=== PATIENT | male | born 1960 | race Caucasian/White ===

== ENCOUNTER 2018-09-22 08:53 | Emergency (ER) | payer BC ==
[~2018-09-22] VITALS: Ht 185.4 cm; Wt 145.0 kg
[2018-09-22] MEDS ORDERED: diltiazem 5mg/ml 5ml inj. IV ONE (09:20)
[2018-09-22] MEDS ORDERED: aspirin 81mg tab.chew PO ONE (09:20)
[2018-09-22 09:28] LABS: BASOPHILS % (AUTO) 0.6 % (0-1); EOSINOPHILS # (AUTO) 0.1 X10'3 (0-0.9); EOSINOPHILS % (AUTO) 1.4 % (0-6); HEMATOCRIT 52.2 % (42.0-52.0); LYMPHOCYTES # (AUTO) 1.3 X10'3 (1.1-4.8); LYMPHOCYTES % (AUTO) 18.3 % (21-51); MEAN CORPUSCULAR HEMOGLOBIN 30.9 PG (27.0-31.0); MEAN CORPUSCULAR HGB CONC 34.6 g/dL (33.0-36.5); MEAN CORPUSCULAR VOLUME 89.4 FL (78-98); MEAN PLATELET VOLUME 8.7 FL (7.4-10.4); MONOCYTES # (AUTO) 0.5 X10'3 (0-0.9); MONOCYTES % (AUTO) 6.8 % (2-12); NEUTROPHILS # (AUTO) 5.2 X10'3 (1.8-7.7); NEUTROPHILS % (AUTO) 72.9 % (42-75); PLATELET COUNT 238 X10'3 (140-440); RED BLOOD COUNT 5.84 X10'6 (4.70-6.10); RED CELL DISTRIBUTION WIDTH 13.6 % (11.5-14.5); WHITE BLOOD COUNT 7.1 X10'3 (4.5-11.0)
[2018-09-22 09:36] LABS: HEMOGLOBIN 18.1 g/dl (14.0-17.9)
[2018-09-22 09:43] LABS: ALANINE AMINOTRANSFERASE 24 U/L (12-78); ALBUMIN 3.5 G/DL (3.4-5.0); ALKALINE PHOSPHATASE 65 IU/L (46-116); ANION GAP 9 (8-16); ASPARTATE AMINO TRANSFERASE 14 U/L (10-37); BILIRUBIN,TOTAL 0.4 MG/DL (0.1-1.0); BLOOD UREA NITROGEN 22 MG/DL (7-18); BUN/CREATININE RATIO 19.5 (5.4-32.0); CALCIUM 9.5 MG/DL (8.5-10.1); CHLORIDE 104 MMOL/L (99-107); CREATININE 1.13 MG/DL (0.60-1.10); GLUCOSE 360 MG/DL (70-104); PARTIAL THROMBOPLASTIN TIME 29 SECONDS (22-32); POTASSIUM 4.5 MMOL/L (3.5-5.1); PROTHROMBIN TIME 9.7 SECONDS (9.0-12.0); SODIUM 138 MMOL/L (135-145); TOTAL CARBON DIOXIDE 24.7 MMOL/L (24-32); eGFR 67 ML/MIN
[2018-09-22 09:50] LABS: MAGNESIUM 1.8 MG/DL (1.5-2.4)
[2018-09-22] MEDS ORDERED: DILT30TA34 PO (10:54)
[2018-09-22 11:09] VITALS: BP 129/83
== END 2018-09-22 11:10 | disposition home or self-care (01) ==
LOC: ER 08:56
DX: I48.0 Paroxysmal atrial fibrillation (principal); E11.65 Type 2 diabetes mellitus with hyperglycemia; I10 Essential (primary) hypertension; M79.604 Pain in right leg; F17.200 Nicotine dependence, unspecified, uncomplicated; Z79.899 Other long term (current) drug therapy
CPT/HCPCS: 36415; 71046; 80053; 83036; 83735; 83880; 84484; 85025; 85610; 85730; 93005; 96374; 99284; J3490